=== PATIENT | female | born 1950 | race Caucasian/White ===

== ENCOUNTER 2016-11-10 15:55 | Emergency (ER) | payer BC, OTHER ==
[~2016-11-10] VITALS: Ht 162.6 cm; Wt 141.7 kg
[2016-11-10] MEDS ORDERED: SODIUM CHLORIDE FLUSH 10ML SYR IVF ONE (16:30)
[2016-11-10] MEDS ORDERED: DIPHENHYDRAMINE 50 MG/ML, 1ML IVPush ONE (16:30)
[2016-11-10] MEDS ORDERED: SODIUM CHLORIDE 0.9% 1,000ML IVBOLUS ONE (16:30)
[2016-11-10] MEDS ORDERED: ONDANSETRON 2MG/ML, 2ML IVPush ONE (16:30)
[2016-11-10 16:50] LABS: BLOOD UREA NITROGEN 9 mg/dL (7-18)
[2016-11-10] MEDS ORDERED: MORPHINE SULFATE 4 MG/ML, 1ML ONE ×2 (16:50→19:58)
[2016-11-10] MEDS ORDERED: ONDANSETRON 2MG/ML, 2ML ONE (16:50)
[2016-11-10] MEDS ORDERED: DIPHENHYDRAMINE 50 MG/ML, 1ML ONE (16:50)
[2016-11-10 16:55] LABS: ASPARTATE AMINO TRANSFERASE 16 U/L (15-37)
[2016-11-10] MEDS: MORPHINE SULFATE 4 MG/ML, 1ML IVPush PRN ×2 (17:51→20:05)
[2016-11-10] MEDS ORDERED: OMNIPAQUE 350 MG/ML, 100ML BOTTLE ONE (18:39)
[2016-11-10 19:06] VITALS: BP 145/80
[2016-11-10] MEDS ORDERED: CEFTRIAXONE PMX 2GM/50ML 50 ML IV ONE (19:30)
[2016-11-10] MEDS ORDERED: CEFTRIAXONE PMX 2GM/50ML 50 ML ONE (19:58)
== END 2016-11-10 20:48 | disposition home or self-care (01) ==
LOC: ED 20:32
DX: N10 Acute pyelonephritis (principal); I10 Essential (primary) hypertension; E78.00 Pure hypercholesterolemia, unspecified; Z90.49 Acquired absence of other specified parts of digestive tract
CPT/HCPCS: 36415; 74177; 80053; 81001; 83690; 85025; 87077; 87086; 87186; 96361; 96375; 96376; 99285; J0696; J1200; J2405; J7030; Q9967; 96365

== ENCOUNTER → 2018-03-31 | Outpatient (CLI) | payer MEDICARE | END | disposition home or self-care (01) | LOC: CFH 09:14 | PROVIDERS: ATTEND Family Medicine | DX: Z12.31 Encounter for screening mammogram for malignant neoplasm of breast (principal); Z80.3 Family history of malignant neoplasm of breast | CPT/HCPCS: 77067 ==

== ENCOUNTER 2018-10-16 09:57 | Emergency (ER) | payer MEDICARE ==
[~2018-10-16] VITALS: Ht 157.5 cm; Wt 130.0 kg
--- NOTE | 2018-10-16 10:45 | NUR ---
pt to CT
[2018-10-16] MEDS ORDERED: MAGN400T36 PO (10:53)
[2018-10-16] MEDS ORDERED: tumeric PO (10:53)
[2018-10-16] MEDS ORDERED: CITA10TA4 PO (10:53)
[2018-10-16] MEDS ORDERED: ASPI-496 PO (10:53)
[2018-10-16] MEDS ORDERED: METF500T17 PO (10:53)
[2018-10-16] MEDS ORDERED: ALPR-475 PO (10:53)
[2018-10-16] MEDS ORDERED: SIMV20TA3 PO (10:53)
[2018-10-16] MEDS ORDERED: CHOL10003 PO (10:53)
[2018-10-16] MEDS ORDERED: OMEG-13 PO (10:53)
[2018-10-16] MEDS ORDERED: LOSA100T14 PO (10:53)
[2018-10-16 11:05] VITALS: BP 115/55
[2018-10-16 11:43] LABS: BASOPHILS # (AUTO) 0.03 x10^3/uL (0-0.1); EOSINOPHILS # (AUTO) 0.15 x10^3/uL (0-0.4); EOSINOPHILS % (AUTO) 2 % (1-7); MD NO
--- NOTE | 2018-10-16 11:48 | NUR ---
ASSUMED CARE AT THIS TIME. BEDSIDE REPORT FROM HOLLY ARAIZA.
[2018-10-16 11:49] LABS: ALANINE AMINOTRANSFERASE 40 U/L (12-78); ALBUMIN 3.9 g/dL (3.4-5.0); ANION GAP 7 mmol/L (5-15); CALCIUM 9.2 mg/dL (8.5-10.1); CHLORIDE 107 mmol/L (98-107); CREATININE 0.99 mg/dL (0.55-1.02)
[2018-10-16 11:52] LABS: ALKALINE PHOSPHATASE 104 U/L (45-117); BILIRUBIN,TOTAL 0.2 mg/dL (0.2-1.0); TOTAL PROTEIN 7.4 g/dL (6.4-8.2)
[2018-10-16 11:54] LABS: MICROSCOPIC AUTO
[2018-10-16 11:57] LABS: CULTURE INDICATED? YES
[2018-10-16 12:04] LABS: BASOPHILS % (AUTO) 1 % (0-1); LYMPHOCYTES # (AUTO) 2.42 x10^3/uL (1-3.4); LYMPHOCYTES % (AUTO) 37 % (22-44); MEAN CORPUSCULAR HEMOGLOBIN 30.3 pg (27.0-34.8); MEAN CORPUSCULAR HGB CONC 33.6 g/dL (32.4-35.8); MEAN CORPUSCULAR VOLUME 90.3 fL (80-100); MEAN PLATELET VOLUME 8.4 fL (7.4-10.4); MONOCYTES # (AUTO) 0.42 x10^3/uL (0.2-0.8); MONOCYTES % (AUTO) 6 % (2-9); NEUTROPHILS # (AUTO) 3.56 x10^3/uL (1.8-6.8); NEUTROPHILS % (AUTO) 54 % (42-75); PLATELET COUNT 314 x10^3/uL (130-400); RED BLOOD COUNT 4.45 x10^6/uL (3.82-5.3); RED CELL DISTRIBUTION WIDTH 14.1 % (9.6-15.2)
--- NOTE | 2018-10-16 12:47 | NUR ---
Patient/Caregiver given discharge instructions and they have confirmed that they understand the instructions. Patient ambulatory with steady gait.
== END 2018-10-16 12:57 | disposition home or self-care (01) ==
LOC: ED 12:45
DX: M54.5 Low back pain (principal); R11.0 Nausea; F41.1 Generalized anxiety disorder; I10 Essential (primary) hypertension; E78.00 Pure hypercholesterolemia, unspecified; Z90.49 Acquired absence of other specified parts of digestive tract
CPT/HCPCS: 36415; 74176; 80053; 81001; 85025; 87086; 99284

== ENCOUNTER 2019-05-04 07:35 | Day surgery (SDC) | payer MEDICARE ==
[~2019-05-04] VITALS: Ht 158.8 cm; Wt 130.1 kg
[~2019-05-04 07:35] MED LIST: ALPR0.5T7 PO; ASPI-496 PO; CHOL10003 PO; CITA10TA4 PO; LOSA100T14 PO; MAGN400T36 PO; METF500T17 PO; OMEG-13 PO; SIMV20TA3 PO; tumeric PO
[2019-05-04] MEDS ORDERED: LACTATED RINGERS 1,000 ML IV SCH (08:24)
[2019-05-04 08:28] VITALS: BP 158/76
[2019-05-04] MEDS ORDERED: ONDANSETRON 2MG/ML, 2ML IV PRN (08:30)
[2019-05-04] MEDS ORDERED: LIDOCAINE-MPF 1%, 2ML INFIL ONE (08:30)
[2019-05-04] MEDS ORDERED: KETOROLAC 30 MG/1 ML IV PRN (08:30)
[2019-05-04] MEDS ORDERED: ACETAMINOPHEN 325 MG TABLET PO PRN (08:30)
[2019-05-04] MEDS ORDERED: FENTANYL PF 100 MCG/2ML IV PRN (08:30)
[2019-05-04] MEDS ORDERED: LIDOCAINE-MPF 1%, 2ML ONE (08:33)
[2019-05-04] MEDS ORDERED: PROPOFOL 10 MG/ML, 50ML ONE (09:11)
[2019-05-04 09:25] LABS: ALANINE AMINOTRANSFERASE 42 U/L (12-78); ALBUMIN 3.4 g/dL (3.4-5.0); ANION GAP 8 mmol/L (5-15); CALCIUM 8.7 mg/dL (8.5-10.1); CHLORIDE 105 mmol/L (98-107); CREATININE 0.76 mg/dL (0.55-1.02)
[2019-05-04 09:28] LABS: ALKALINE PHOSPHATASE 86 U/L (45-117); BILIRUBIN,TOTAL 0.6 mg/dL (0.2-1.0); TOTAL PROTEIN 6.8 g/dL (6.4-8.2)
== END 2019-05-04 10:15 | disposition home or self-care (01) ==
LOC: OUT 07:35
PROVIDERS: ATTEND Internal Medicine
DX: Z12.11 Encounter for screening for malignant neoplasm of colon (principal); K63.5 Polyp of colon; E11.9 Type 2 diabetes mellitus without complications; I10 Essential (primary) hypertension; E78.5 Hyperlipidemia, unspecified; F41.9 Anxiety disorder, unspecified; E66.01 Morbid (severe) obesity due to excess calories; Z86.010 Personal history of colon polyps; Z88.0 Allergy status to penicillin
CPT/HCPCS: 45380; 80053; 82962; 88305; 93005; J2704; J7120

== ENCOUNTER → 2019-05-09 | Outpatient (CLI) | payer MEDICARE | END | disposition home or self-care (01) | LOC: CFH 12:33 | PROVIDERS: ATTEND Physician Assistant Surgical | DX: M79.89 Other specified soft tissue disorders (principal); M79.661 Pain in right lower leg; I10 Essential (primary) hypertension; E11.9 Type 2 diabetes mellitus without complications; E78.5 Hyperlipidemia, unspecified ==

== ENCOUNTER 2020-09-25 10:16 | Outpatient (CLI) | payer MEDICARE ==
[~2020-09-25 10:16] MED LIST changes: +SIMV20TA19 PO; -SIMV20TA3 PO
== END 2020-09-25 23:59 | disposition home or self-care (01) ==
LOC: CFH 10:16
DX: Z13.820 Encounter for screening for osteoporosis (principal); N95.9 Unspecified menopausal and perimenopausal disorder
CPT/HCPCS: 77080